=== PATIENT | male | born 2000 | race Caucasian/White ===

== ENCOUNTER → 2018-05-27 19:25 | Outpatient (CLI) | payer OTHER, SELFPAY ==
[2018-05-27 19:54] LABS: Influenza A and B by PCR Rapid Negative (Negative)
== END ==
PROVIDERS: Visit Provider Physician Assistant
DX: R68.89 Other general symptoms and signs (principal); J02.9 Acute pharyngitis, unspecified
CPT/HCPCS: 87070; 87077; 87147; 87400